=== PATIENT | female | born 1995 ===

== ENCOUNTER 2018-02-21 11:08 | Emergency (ER) | payer SELFPAY ==
--- NOTE | 2018-02-21 12:15 | C.PDOC ---
History Of Present Illness 22 y/o female presents to the ER with boyfriend complaining of feeling nauseous. Patient denies having fever, chills, vomiting, abdominal pain, vaginal bleeding, and vaginal discharge. Time Seen by Provider: 02/21/18 11:29 Chief Complaint (Nursing): Medical Clearance History Per: Patient History/Exam Limitations: no limitations Onset/Duration Of Symptoms: Days Current Symptoms Are (Timing): Still Present Severity: Moderate Past Medical History Reviewed: Historical Data, Nursing Documentation, Vital Signs Vital Signs: Last Vital Signs Temp 98.9 F 02/21/18 11:11 Pulse 79 02/21/18 11:11 Resp 16 02/21/18 11:11 BP 131/90 02/21/18 11:11 Pulse Ox 100 02/21/18 11:11 - Medical History PMH: No Chronic Diseases Surgical History: No Surg Hx Family History: States: No Known Family Hx - Social History Hx Alcohol Use: No Hx Substance Use: No - Immunization History Hx Tetanus Toxoid Vaccination: No Hx Influenza Vaccination: No Hx Pneumococcal Vaccination: No Review Of Systems Except As Marked, All Systems Reviewed And Found Negative. Constitutional: Negative for: Fever, Chills Gastrointestinal: Positive for: Nausea. Negative for: Vomiting, Abdominal Pain Physical Exam - Physical Exam Appears: Non-toxic, No Acute Distress Skin: Normal Color, Warm, Dry Head: Atraumatic, Normacephalic Eye(s): bilateral: Normal Inspection Nose: Normal Oral Mucosa: Moist Neck: Supple Chest: Symmetrical Cardiovascular: Rhythm Regular Respiratory: Normal Breath Sounds, No Rales, No Rhonchi, No Wheezing Gastrointestinal/Abdominal: Normal Exam, Soft, No Tenderness, No Guarding, No Rebound Neurological/Psych: Oriented x3, Normal Speech ED Course And Treatment - Laboratory Results Result Diagrams: 02/21/18 12:57 02/21/18 12:57 O2 Sat by Pulse Oximetry: 100 (RA) Pulse Ox Interpretation: Normal Progress Note: Labs, UA, and HCG-Qual. ordered. Patient treated with IV Fluids and Zofran IV. On re-evaluation patient feels better and is stable to be d/c home with OBGYN f/u on 03/05/2018. Disposition - Disposition Disposition: HOME/ ROUTINE Disposition Time: 13:26 Condition: STABLE Additional Instructions: Follow up with OBGYN within 1-2 days. Return to ED if feel worse. 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 - Scribe Statement The provider has reviewed the documentation as recorded by the Maddie Jade Provider Attestation All medical record entries made by the Maddie were at my direction and personally dictated by me. I have reviewed the chart and agree that the record accurately reflects my personal performance of the history, physical exam, medical decision making, and the department course for this patient. I have also personally directed, reviewed, and agree with the discharge instructions and disposition.
[2018-02-21] MEDS ORDERED: Sodium Chloride 0.9% 1,000 ML IV STA (12:17)
[2018-02-21 13:08] LABS: BASO % 0.4 % (0.0-2.0); EOS % 0.8 % (0.0-4.0); HEMOGLOBIN 12.9 g/dL (11.0-16.0); LYMPH # 1.7 K/uL (1.0-4.3); LYMPH % 26.4 % (20.0-40.0); MEAN CELL VOLUME 90.2 fL (81.0-99.0); MEAN CORPUSCULAR HEMOGLOBIN 31.5 pg (27.0-31.0); MEAN CORPUSCULAR HGB CONC 34.9 g/dL (33.0-37.0); MEAN PLATELET VOLUME 7.7 fL (7.2-11.7); MONO # 0.5 K/uL (0.0-0.8); MONO % 7.9 % (0.0-10.0); NEUT # 4.2 K/uL (1.8-7.0); NEUT % 64.5 % (50.0-75.0); RBC 4.09 Mil/uL (3.80-5.20); RED CELL DISTRIBUTION WIDTH 13.1 % (11.5-14.5); WHITE BLOOD COUNT 6.4 K/uL (4.8-10.8)
[2018-02-21 13:18] LABS: HCG,QUALITATIVE URINE POSITIVE (NEGATIVE)
[2018-02-21 13:20] LABS: SQUAMOUS EPITHIAL 13 /hpf (0-5); URINE BACTERIA RARE (<OCC); URINE BILIRUBIN NEGATIVE (NEGATIVE); URINE BLOOD NEGATIVE (NEGATIVE); URINE CLARITY Hazy (Clear); URINE COLOR Amber (YELLOW); URINE GLUCOSE (UA) NORMAL (Normal); URINE LEUKOCYTE ESTERASE 1+ Leu/uL (Negative); URINE PROTEIN 1+ mg/dL (NEGATIVE); URINE UROBILINOGEN NORMAL mg/dL (0.2-1.0)
[2018-02-21 13:22] LABS: ALB/GLOB RATIO 1.4 (1.0-2.1); ALBUMIN 4.1 g/dL (3.5-5.0); ALT/SGPT 28 U/L (9-52); AST/SGOT 24 U/L (14-36); BLOOD UREA NITROGEN 7 mg/dL (7-17); CALCIUM 9.1 mg/dl (8.6-10.4); GFR NON-AFRICAN AMERICAN > 60; LIPASE 54 U/L (23-300)
[2018-02-21 13:39] VITALS: BP 100/65; PULSE 74; RESP 18; TEMP 97.8
[2018-02-21 15:28] VITALS: O2SAT 100
== END 2018-02-21 14:06 | disposition home or self-care (01) ==
LOC: C.ER 11:08
DX: O21.9 Vomiting of pregnancy, unspecified (principal); Z3A.00 Weeks of gestation of pregnancy not specified
CPT/HCPCS: 80053; 81001; 83690; 84703; 85025; 96361; 96374; 99282; J2405; J7030

== ENCOUNTER 2018-03-28 16:48 | Emergency (ER) | payer SELFPAY ==
[2018-03-28 17:06] VITALS: RESP 18; O2SAT 100
[2018-03-28 17:54] LABS: BASO % 0.3 % (0.0-2.0); EOS # 0.2 K/uL (0.0-0.7); EOS % 1.9 % (0.0-4.0); HEMOGLOBIN 12.4 g/dL (11.0-16.0); LYMPH # 2.1 K/uL (1.0-4.3); LYMPH % 26.1 % (20.0-40.0); MEAN CELL VOLUME 89.1 fL (81.0-99.0); MEAN CORPUSCULAR HEMOGLOBIN 30.4 pg (27.0-31.0); MEAN CORPUSCULAR HGB CONC 34.1 g/dL (33.0-37.0); MEAN PLATELET VOLUME 7.4 fL (7.2-11.7); MONO # 0.5 K/uL (0.0-0.8); MONO % 6.2 % (0.0-10.0); NEUT # 5.3 K/uL (1.8-7.0); NEUT % 65.5 % (50.0-75.0); RBC 4.1 Mil/uL (3.80-5.20); WHITE BLOOD COUNT 8.1 K/uL (4.8-10.8)
[2018-03-28 18:01] LABS: HCG,QUALITATIVE URINE POSITIVE (NEGATIVE)
[2018-03-28 18:18] LABS: ALT/SGPT 24 U/L (9-52); AST/SGOT 30 U/L (14-36); BLOOD UREA NITROGEN 4 mg/dL (7-17); CALCIUM 9.6 mg/dl (8.6-10.4); GFR NON-AFRICAN AMERICAN > 60; LIPASE 69 U/L (23-300)
[2018-03-28 18:26] LABS: ALB/GLOB RATIO 1.4 (1.0-2.1)
[2018-03-28 18:36] LABS: SQUAMOUS EPITHIAL 8 /hpf (0-5); URINE BACTERIA OCC (<OCC); URINE BILIRUBIN NEGATIVE (NEGATIVE); URINE BLOOD NEGATIVE (NEGATIVE); URINE CLARITY Hazy (Clear); URINE COLOR Yellow (YELLOW); URINE GLUCOSE (UA) NORMAL (Normal); URINE PROTEIN NEGATIVE (NEGATIVE); URINE UROBILINOGEN NORMAL mg/dL (0.2-1.0)
[2018-03-28 18:38] LABS: URINE LEUKOCYTE ESTERASE 1+ Leu/uL (Negative)
--- NOTE | 2018-03-28 18:50 | US ---
Date of service: 03/28/2018 PROCEDURE: First trimester ultrasound HISTORY: lower abdominal pain COMPARISON: None TECHNIQUE: Standard protocol for this study/examination. FINDINGS: LMP: 12/28/2017. Prior examinations from the current : None TECHNIQUE: Real-time 2D imaging, duplex and color Doppler. FINDINGS: Cardiac activity: Present Rate: 137 BPM Measurements: [place] rump length: 5.28 cm Gestational age based on CRL 12 weeks Gestational age 11 weeks 4 days based on gestational sac measurement 5.53 cm Gestational age derived from LMP: 12 weeks 6 days DES based on LMP: 10/04/2018 DES based on biometry: 10/11/2016 Gestational concordance documented Yolk sac identified Cervix: No Cervical abnormalities: Negative examination for cervical dilatation or effacement. Closed cervix measuring 3.03 cm Subchorionic hemorrhage: None UTERUS: 6.3 x 68.8 x 12 cm. ADNEXA: Right: 3.1 x 2.5 x 2.6 cm. Normal Doppler arterial waveform documented. Left: 1.4 x 2.7 x 2.2 cm. Normal Doppler arterial waveform documented Fluid in the cul-de-sac: None IMPRESSION: 11 weeks 6 days live intrauterine gestation. Gestational concordance documented.
--- NOTE | 2018-03-28 18:52 | C.PDOC ---
History Of Present Illness 22 y/o female presents to the ED with complaints of lower abdominal pain for the past couple of days. Associated with mild nausea but no vomiting. Otherwise patient denies any dysuria, hematuria, vaginal bleeding, or discharge. Of note patient is currently . LMP was 12/28/17. Time Seen by Provider: 03/28/18 17:34 Chief Complaint (Nursing): Abdominal Pain History Per: Patient History/Exam Limitations: no limitations Onset/Duration Of Symptoms: Days Current Symptoms Are (Timing): Still Present Location Of Pain/Discomfort: Suprapubic Quality Of Discomfort: "Pain" Associated Symptoms: Nausea Past Medical History Reviewed: Historical Data, Nursing Documentation, Vital Signs Vital Signs: Last Vital Signs Temp 98.0 F 03/28/18 17:02 Pulse 91 H 03/28/18 17:02 Resp 18 03/28/18 17:02 BP 128/85 03/28/18 17:02 Pulse Ox 100 03/28/18 17:02 - Medical History PMH: No Chronic Diseases Surgical History: No Surg Hx Family History: States: No Known Family Hx - Social History Hx Tobacco Use: No Hx Alcohol Use: No Hx Substance Use: No - Immunization History Hx Tetanus Toxoid Vaccination: No Hx Influenza Vaccination: No Hx Pneumococcal Vaccination: No Review Of Systems Except As Marked, All Systems Reviewed And Found Negative. Constitutional: Negative for: Fever, Chills Gastrointestinal: Positive for: Nausea, Abdominal Pain. Negative for: Vomiting, Diarrhea Genitourinary: Negative for: Dysuria, Frequency, Hematuria, Vaginal Discharge, Vaginal Bleeding Physical Exam - Physical Exam Appears: Non-toxic, No Acute Distress Skin: Normal Color, Warm, Dry Head: Atraumatic, Normacephalic Eye(s): bilateral: Normal Inspection, PERRL, EOMI Oral Mucosa: Moist Neck: Normal ROM Chest: Symmetrical Cardiovascular: Rhythm Regular, No Murmur Respiratory: Normal Breath Sounds, No Accessory Muscle Use, No Wheezing Gastrointestinal/Abdominal: Soft, Tenderness (Minimal suprapubic tenderness), No Distention, No Guarding, No Rebound Back: No CVA Tenderness, No Vertebral Tenderness Extremity: Bilateral: Atraumatic, Normal Color And Temperature, Normal ROM Neurological/Psych: Oriented x3, Normal Speech ED Course And Treatment - Laboratory Results Result Diagrams: 03/28/18 17:48 03/28/18 17:48 O2 Sat by Pulse Oximetry: 100 (RA) Pulse Ox Interpretation: Normal - CT Scan/US OB Ultrasound Other Rad Studies (CT/US): Read By Radiologist, Radiology Report Reviewed CT/US Interpretation: Accession No. : [id number]. Patient Name / ID : EDITH PIPER / [id number]. Exam Date : 03/28/2018 18:15:00 ( Approved ). Study Comment : Sex / Age : F / 22Y. Creator : Jose Martin Allison MD. Dictator : Jose Martin Allison MD. Nursing Faculty : Spool Tender : Jose Martin Allison MD. Approver2 : Report Date : 03/28/2018 18:47:30. My Comment : . Date of service: 03/28/2018. PROCEDURE: First trimester ultrasound. HISTORY: lower abdominal pain. COMPARISON: None. TECHNIQUE: Standard protocol for this study/examination. FINDINGS: LMP: 12/28/2017. Prior examinations from the current : None. TECHNIQUE: Real-time 2D imaging, duplex and color Doppler. FINDINGS: Cardiac activity: Present. Rate: 137 BPM. Measurements: Onset rump length: 5.28 cm. Gestational age based on CRL 12 weeks. Gestational age 11 weeks 4 days based on gestational sac measurement 5.53 cm. Gestational age derived from LMP: 12 weeks 6 days. DES based on L MP: 10/04/2018. DES based on biometry: 10/11/2016. Gestational concordance documented. Yolk sac identified. Cervix: No Cervical abnormalities: Negative examination for cervical dilatation or effacement. Closed cervix measuring 3.03 cm. Subchorionic hemorrhage: None. UTERUS: 6.3 x 68.8 x 12 cm. ADNEXA: Right: 3.1 x 2.5 x 2.6 cm. Normal Doppler arterial waveform documented. Left: 1.4 x 2.7 x 2.2 cm. Normal Doppler arterial waveform documented. Fluid in the cul-de-sac: None. IMPRESSION: 11 weeks 6 days live intrauterine gestation. Gestational concordance documented. Medical Decision Making Medical Decision Making: Impression: Abdominal pain during Initial Plan: --CMP --Lipase --Beta-HCG --CBC --UA --Urine HCG --Urine culture -- OB US Labs reviewed: Urine HCG is positive. UA (+) for bacteria and leuks. Ultrasound shows live IUP, copy of report provided to patient. Patient advised to follow up in the women's clinic or with any OB. Disposition Counseled Patient/Family Regarding: Studies Performed, Diagnosis, Need For Followup - Disposition Referrals: [facility] Alex Mcnamara, [Non-Staff] - Disposition: HOME/ ROUTINE Disposition Time: 18:55 Condition: GOOD Additional Instructions: VERONIQUE LAWSON, thank you for letting us take care of you today. The emergency medical care you received today was directed at your acute symptoms. If you were prescribed any medication, please fill it and take as directed. It may take several days for your symptoms to resolve. Return to the Emergency Department if your symptoms worsen, do not improve, or if you have any other problems. Please contact your doctor or call one of the physicians/clinics you have been referred to that are listed on the Patient Visit Information form that is included in your discharge packet. Bring any paperwork you were given at discharge with you along with any medications you are taking to your follow up visit. Our treatment cannot replace ongoing medical care by a primary care provider outside of the emergency department. Thank you for allowing the [facility] team to be part of your care today. Follow up with your OB doctor this week for re-evaluation and further management. VERONIQUE LAWSON, paulo por dejarnos cuidar de ti hoy. La atencin mdica de emergencia que recibi hoy se dirigi a tyson sntomas agudos. Si le recetaron algn medicamento, llnelo y tmelo segn las indicaciones. Los sntomas pueden tardar varios johnston en resolverse. Regrese al Departamento de Emergencias si tyson sntomas empeoran, no mejoran o si tiene otros problemas. Comunquese con sharif mdico o llame a ana de los mdicos / clnicas a los que steen sido referido que figuran en el formulario de Informacin de visita al paciente que se incluye en sharif paquete de aury. Traiga cualquier documento que se les mani al aury con usted junto con cualquier medicamento que est tomando a sharif visita de seguimiento. Nuestro tratamiento no puede reemplazar la atencin mdica continua por parte de un proveedor de atencin primaria fuera del departamento de emergencias. Paulo por permitir que el equipo de [facility] [employer] sea parte de sharif atencin hoy. Sesar un seguimiento con sharif mdico OB esta semana para reevaluar y administrar ms. Instructions: - The Fourth Month Forms: Gen Discharge Inst [place], [employer] ([place]) Print Language: HUNGARIAN - POA Present On Arrival: None - Clinical Impression Clinical Impression: Abdominal pain during - Scribe Statement The provider has reviewed the documentation as recorded by the Hallieibrhonda Bliss Provider Attestation: All medical record entries made by the Scribe were at my direction and personally dictated by me. I have reviewed the chart and agree that the record accurately reflects my personal performance of the history, physical exam, medical decision making, and the department course for this patient. I have also personally directed, reviewed, and agree with the discharge instructions and disposition.
[2018-03-28 19:06] VITALS: BP 114/77; PULSE 85; TEMP 98.1
== END 2018-03-28 19:05 | disposition home or self-care (01) ==
LOC: C.ER 16:48
DX: O26.891 Other specified pregnancy related conditions, first trimester (principal); R10.30 Lower abdominal pain, unspecified; Z3A.11 11 weeks gestation of pregnancy

== ENCOUNTER 2018-05-09 10:26 | Outpatient (CLI) | payer SELFPAY | END 2018-05-09 10:27 | disposition home or self-care (01) | LOC: C.LAB 10:26 | DX: Z34.92 Encounter for supervision of normal pregnancy, unspecified, second trimester (principal) ==

== ENCOUNTER 2018-06-28 19:15 | Emergency (ER) | payer SELFPAY | END 2018-06-28 21:30 | disposition home or self-care (01) | LOC: C.EROB 19:15 ==

== ENCOUNTER 2018-06-30 09:01 | Outpatient (CLI) | payer SELFPAY | END 2018-06-30 09:02 | disposition home or self-care (01) | LOC: C.LAB 09:01 | DX: Z34.92 Encounter for supervision of normal pregnancy, unspecified, second trimester (principal) ==

== ENCOUNTER 2018-07-22 15:24 | Emergency (ER) | payer SELFPAY ==
[2018-07-22 16:00] VITALS: BMI 33.5
[2018-07-22] MEDS ORDERED: Lactated Ringer's 1,000 ML IV ONE (16:12)
[2018-07-22 16:46] LABS: BASO % 0.1 % (0.0-2.0); EOS # 0.1 K/uL (0.0-0.7); EOS % 1.5 % (0.0-4.0); LYMPH # 1.5 K/uL (1.0-4.3); LYMPH % 16.7 % (20.0-40.0); MEAN CORPUSCULAR HEMOGLOBIN 30.2 pg (27.0-31.0); MEAN CORPUSCULAR HGB CONC 32.9 g/dL (33.0-37.0); MEAN PLATELET VOLUME 7.8 fL (7.2-11.7); MONO # 0.7 K/uL (0.0-0.8); MONO % 7.6 % (0.0-10.0); NEUT # 6.5 K/uL (1.8-7.0); NEUT % 74.1 % (50.0-75.0); RBC 3.96 Mil/uL (3.80-5.20); RED CELL DISTRIBUTION WIDTH 13.3 % (11.5-14.5); WHITE BLOOD COUNT 8.8 K/uL (4.8-10.8)
[2018-07-22 16:58] LABS: SQUAMOUS EPITHIAL 25 /hpf (0-5); URINE BACTERIA MANY (<OCC); URINE BILIRUBIN NEGATIVE (NEGATIVE); URINE BLOOD NEGATIVE (NEGATIVE); URINE CALCIUM OXALATE CRYSTALS MOD /hpf (<OCC); URINE CLARITY Hazy (Clear); URINE COLOR Amber (YELLOW); URINE GLUCOSE (UA) NORMAL (Normal); URINE LEUKOCYTE ESTERASE 3+ Leu/uL (Negative); URINE PROTEIN 2+ mg/dL (NEGATIVE); URINE UROBILINOGEN NORMAL mg/dL (0.2-1.0); WBC CLUMPS FEW /hpf
[2018-07-22 17:15] LABS: ALB/GLOB RATIO 1.3 (1.0-2.1); ALBUMIN 3.6 g/dL (3.5-5.0); ALT/SGPT 18 U/L (9-52); AST/SGOT 21 U/L (14-36); BILIRUBIN,DIRECT 0.2 mg/dL (0.0-0.4); BLOOD UREA NITROGEN 6 mg/dL (7-17); CALCIUM 9.2 mg/dl (8.6-10.4); CREATININE, RANDOM URINE 164.8 mg/dL; GFR NON-AFRICAN AMERICAN > 60; PROTHROMBIN TIME 10.7 SECONDS (9.7-12.2); URIC ACID 4.3 mg/dL (2.2-7.5)
--- NOTE | 2018-07-22 18:09 | OBHP ---
Datetime: 07/22/2018 16:15 IP Adm Impression: , intrauterine IP Admit Plan: Discharge home Admit Comment, IP Provider: 22 year old at 28.4 weeks with DES 10/10/18 and LMP unknown presents to OB ED with dysuria, increased urinary frequency, and suprapubic pain. Patient was here in triage last month and was treated with a whole 7 days course of macrobid as instructed. Patient states today she felt worse than when she first came. This is her second possible UTI during this . Orquidea ent denies abnormal vaginal discharge and vaginal bleeding. There is some abdominal pain at rest but when she urinates it worsens and it is sharp. Last intercourse was 4 days ago. The urinary symptoms b claudia yesterday. Patient also complaining of a 7/10 constant headache today. She only drank one bottle of water tod ay and normally has 8 standard size plastic bottles. She feels feverish, but denies chills, sweats, n ausea, vomiting, diarrhea, back pain, chest pain, and shortness of breath. Also denies visual changes , RUQ pain, edema. OB outpatient: [facility] - Dr. 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 Monthly cycles for 5 days. No history of pap smear due to < 21 y o. PMHx: pulmonary edema when she was a child, last time she took meds for it was when she was about 9 years old. She denies taking any medications or having issues with this condition now. FHx: mother has HTN, father unk. SocHx: Denies tobacco, EtOH and illicit drugs. Currently unemployed. . Meds: PNV, folate Allergies: NKDA physical exam and vitals - see above A/P: 22 yo at 28.4 weeks with DES 10/10/18 presents with urinary symptoms and headache. -UA, UCx -PIH labs due to borderline BP and headache -CBC ordered due to low grade fever and tachycardia -IVF -NST -follow up labs above for possible UTI and PIH, will treat as indicated case d/w Dr. Beatrice Hart PGY1 Pt seen at bedside. Agree with above. Rx for Keflex 500mg PO BID x 7 days followed by suppresion given no s/s PEC PIH labs WNL - precautions given DC home, f/u in clinic in 1 week Extremities - PN: Normal Abdomen - PN: Abnormal Back - PN: Normal Lungs - PN: Normal Heart - PN: Normal HEENT - PN: Not Done General - PN: Normal Comments, ACOG Physical Exam: No CVA tenderness bilaterally Suprapubic tenderness R > L IP Hx Assessment: The History has been Updated EGA AdmitDate IP: 28.4 Vital Signs Provider: Reviewed Vital Signs Provider Details: tachycardia IP Chief Complaint: Signs/Symptoms Gestational HTN; Signs/symptoms UTI
[2018-07-22 22:54] VITALS: BP 111/60; PULSE 92; RESP 18; TEMP 99.4
== END 2018-07-22 18:41 | disposition home or self-care (01) ==
LOC: C.EROB 15:24
DX: O26.893 Other specified pregnancy related conditions, third trimester (principal); Z3A.28 28 weeks gestation of pregnancy; R35.0 Frequency of micturition; R51 Headache
CPT/HCPCS: 80053; 81001; 82570; 83615; 84156; 84550; 85025; 85384; 85610; 85730; 87086; 99283; J7120

== ENCOUNTER 2018-08-05 15:44 | Emergency (ER) | payer SELFPAY ==
[2018-08-05 15:45] VITALS: BMI 33.5
--- NOTE | 2018-08-05 16:43 | C.PDOC ---
History Of Present Illness 22 year old female presents to ED with complaint of sore throat for the past 2 days. Patient states that it feels like her glands are swollen. Patient is 30 weeks . Patient denies fever, difficulty swallowing, shortness of breath, and abdominal pain. Time Seen by Provider: 08/05/18 15:53 Chief Complaint (Nursing): ENT Problem History Per: Patient History/Exam Limitations: no limitations Onset/Duration Of Symptoms: Days (2) Current Symptoms Are (Timing): Still Present Location Of Pain: Throat Associated Symptoms: Sore Throat. denies: Fever, Other (difficulty swallowing, shortness of breath, and abdominal pain ) Past Medical History Reviewed: Historical Data, Nursing Documentation, Vital Signs Vital Signs: Last Vital Signs Temp 98 F 08/05/18 15:48 Pulse 117 H 08/05/18 15:48 Resp 18 08/05/18 15:48 BP 130/88 08/05/18 15:48 Pulse Ox 99 08/05/18 15:48 - Medical History PMH: No Chronic Diseases Surgical History: No Surg Hx Family History: States: Unknown Family Hx - Social History Hx Tobacco Use: No Hx Alcohol Use: No Hx Substance Use: No - Immunization History Hx Tetanus Toxoid Vaccination: No Hx Influenza Vaccination: No Hx Pneumococcal Vaccination: No Review Of Systems Constitutional: Negative for: Fever, Chills ENT: Positive for: Throat Pain. Negative for: Other (difficulty swallowing) Respiratory: Negative for: Shortness of Breath Gastrointestinal: Negative for: Abdominal Pain Physical Exam - Physical Exam Appears: Well, Non-toxic, No Acute Distress Skin: Normal Color, Warm, Dry Head: Atraumatic, Normacephalic Eye(s): left: Normal Inspection Ear(s): Bilateral: Normal Nose: Normal Oral Mucosa: Moist Throat: Erythema (minimal ) Neck: Normal ROM, Supple Chest: Symmetrical, No Deformity Cardiovascular: Rhythm Regular, No Murmur Respiratory: No Accessory Muscle Use, No Rales, No Rhonchi, No Wheezing Gastrointestinal/Abdominal: Soft, Other (gravid) Extremity: Capillary Refill (<2 seconds) Neurological/Psych: Oriented x3, Normal Speech, Normal Cognition ED Course And Treatment O2 Sat by Pulse Oximetry: 99 (in RA) Pulse Ox Interpretation: Normal Medical Decision Making Medical Decision Making: Impression: 22 year old female with sore throat. Plan: Throat culture Rapid strep Rapid strep negative. Patient remained afebrile and able to speak clear sentences and no intraoral swelling or drooling Disposition Counseled Patient/Family Regarding: Diagnosis, Need For Followup, Rx Given - Disposition Disposition: HOME/ ROUTINE Disposition Time: 17:04 Condition: GOOD Additional Instructions: Melanie Tylenol para cualquier dolor. 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 (Mariel Alves) - Scribe Statement The provider has reviewed the documentation as recorded by the Scribe (Mariel Alves) All medical record entries made by the Scribe were at my direction and personally dictated by me. I have reviewed the chart and agree that the record accurately reflects my personal performance of the history, physical exam, medical decision making, and the department course for this patient. I have also personally directed, reviewed, and agree with the discharge instructions and disposition.
[2018-08-05 17:16] VITALS: BP 122/78; PULSE 93; RESP 17; TEMP 98.5
[2018-08-05 17:27] VITALS: O2SAT 99
== END 2018-08-05 17:16 | disposition home or self-care (01) ==
LOC: C.ER 15:44
DX: O99.513 Diseases of the respiratory system complicating pregnancy, third trimester (principal); J02.9 Acute pharyngitis, unspecified; Z3A.30 30 weeks gestation of pregnancy

== ENCOUNTER 2018-08-28 11:39 | Outpatient (CLI) | payer SELFPAY | END 2018-08-28 11:40 | disposition home or self-care (01) | LOC: C.LAB 11:39 | DX: Z34.93 Encounter for supervision of normal pregnancy, unspecified, third trimester (principal) ==

== ENCOUNTER 2018-08-30 15:48 | Inpatient (IN) | payer SELFPAY ==
[2018-08-30 16:27] VITALS: BMI 33.8
[2018-08-30 16:49] LABS: SQUAMOUS EPITHIAL 15 /hpf (0-5); URINE BACTERIA FEW (<OCC); URINE BILIRUBIN NEGATIVE (NEGATIVE); URINE BLOOD NEGATIVE (NEGATIVE); URINE CLARITY Hazy (Clear); URINE COLOR Yellow (YELLOW); URINE GLUCOSE (UA) NORMAL (Normal); URINE LEUKOCYTE ESTERASE 3+ Leu/uL (Negative); URINE PROTEIN NEGATIVE (NEGATIVE); URINE UROBILINOGEN NORMAL mg/dL (0.2-1.0)
[2018-08-30] MEDS ORDERED: Lactated Ringer's 1,000 ML IV ONE (19:55)
[2018-08-30] MEDS ORDERED: Betamethasone Soluspan 30 mg/5mL Inj Susp IM ONE (19:59)
[2018-08-30] MEDS ORDERED: Lactated Ringer's 1,000 ML IV SCH (20:15)
[2018-08-30 20:48] LABS: BASO % 0.3 % (0.0-2.0); EOS # 0.2 K/uL (0.0-0.7); EOS % 2.2 % (0.0-4.0); HEMOGLOBIN 12.5 g/dL (11.0-16.0); LYMPH # 1.6 K/uL (1.0-4.3); LYMPH % 16.4 % (20.0-40.0); MEAN CELL VOLUME 89.3 fL (81.0-99.0); MEAN CORPUSCULAR HEMOGLOBIN 30.1 pg (27.0-31.0); MEAN CORPUSCULAR HGB CONC 33.7 g/dL (33.0-37.0); MEAN PLATELET VOLUME 8.2 fL (7.2-11.7); MONO # 0.6 K/uL (0.0-0.8); MONO % 6.4 % (0.0-10.0); NEUT # 7.1 K/uL (1.8-7.0); NEUT % 74.7 % (50.0-75.0); NRBC % 0.1 % (0.0-2.0); RBC 4.16 Mil/uL (3.80-5.20); RED CELL DISTRIBUTION WIDTH 13.6 % (11.5-14.5); WHITE BLOOD COUNT 9.5 K/uL (4.8-10.8)
[2018-08-30 21:05] LABS: ALB/GLOB RATIO 1.2 (1.0-2.1); ALBUMIN 3.6 g/dL (3.5-5.0); ALT/SGPT 20 U/L (9-52); AST/SGOT 20 U/L (14-36); BLOOD UREA NITROGEN 7 mg/dL (7-17); CALCIUM 9.4 mg/dl (8.6-10.4); GFR NON-AFRICAN AMERICAN > 60; URIC ACID 4.5 mg/dL (2.2-7.5)
--- NOTE | 2018-08-30 21:38 | OBADHP ---
Datetime: 08/30/2018 16:28 IP Chief Complaint Other: Swollen hands and feet Admit Comment, IP Provider: Patient is a 22 YO F , with IUP at 34.1 weeks and DES 10/10 based on LMP of 01/03/18 and late US. Patient is coming in today with complain of hand and feel swelling, an d pressure on lower abdomen. Patient currently denies vaginal bleeding and loss of fluid. She reports good movement and cramping starting early in the morning, which has since resolved. Patient re ports urination 6-7x/day and drinks 5-6 8oz bottles of water. Her outpatient OBGyn is Dr. Joya at [facility]. Apparently patient was seen at Clinic on 08/22 and was given Rx for 24 hour Urine f or TProt. Cr Cl and PIH labs and she had those done on 08/28 at [facility]. 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 Denies history of STD, f ibroids and cysts. PMH: Denies PSH: Denies Allergies: NKDA Meds: Prenatals Social Hx: Denies tobacco, alcohol and recreational drugs. Patient is currently and unecmp loyed. Fam Hx: Mother 40 YO HTN. Father not in contact A/P IUP at 34.1 weeks Worsening of hands and feet swelling over the past week Midly elevated BP's without MADRID, Bv or EP NST Reactive and no signs of labor Had work-up for PIH on 08/28 and results reviewed and WNL for the most part except for 24 hours TP of 315 mgs. UA today revealed Dehydration, 25 WBC's in urine, c/w UTI and P/Cr ratio of 0.07 Hx of + E.Coli urine infection about 6 weeks ago and treated with Macrobid and on daily dose Case discussed with NATIVIDAD Barton and recommended to admit patient, repeat 24 hour urine collect ion and PIH labs, BPP, and Celestone POC discussed with patient and verbalized understanding and orderes written IV LR ordered as well as Ancef and all other recommended orders. Indy Duenas OMS III Pt seen and examined with MD student HIRAM Duenas and agree with all her findings and POC Extremities - PN: Normal Abdomen - PN: Normal Back - PN: Normal Breast - PN: Not Done Lungs - PN: Normal Heart - PN: Normal Thyroid - PN: Not Done Neurologic - PN: Not Done HEENT - PN: Not Done General - PN: Normal FHR - Baseline A Provider: 150 Membranes, Provider: Intact Comments, ACOG Physical Exam: Heart - S1,S2 no S3/S4 no rubs and gallops Lungs - Normal sounds to auscultation to all zapata, no RRW Abdomen - Fundal height 29.5 cm Extremties - 1+ edema, 2+ pulses on all extremities, no calf tenderness Gestation - Est Wks by US: 34.1 Vital Signs Provider: Reviewed Vital Signs Provider Details: Tachycardia IP Chief Complaint: Other NICHD Variability Prov Fetus A: Moderate 6-25bpm NICHD Accel Fetus A IP Provider: [id number] FHR Category Provider Fetus A: Category I Genitourinary Exam: Not Done DTRs - PN: Not Done EGA AdmitDate IP: 34.1 IP Adm Impression: Term, intrauterine ; No Active Labor; Intact Membranes IP Admit Plan: Admit to unit; Observation/Evaluation Datetime: 07/22/2018 16:15 IP Hx Assessment: The History has been Updated Datetime: 06/28/2018 20:15 Pelvic Type - PN: Adequate Contraction Comments Provider: none NICHD Decel Fetus A IP Provider: None Dilatation, Provider: 0 Effacement, Provider: 0 Station, Provider: n/a
[2018-08-30] MEDS: ceFAZolin 1 gm FROZEN Premix 1 GM/50 ML ML IVPB SCH (22:15)
[2018-08-31] MEDS: ceFAZolin 1 gm FROZEN Premix 1 GM/50 ML ML IVPB SCH ×3 (06:15→20:13)
--- NOTE | 2018-08-31 12:31 | US ---
Date of service: 08/30/2018 PROCEDURE: Limited obstetrical ultrasound and biophysical profile HISTORY: Probable Preeclampsia. Dehydration, UTI COMPARISON: 03/28/2018. ultrasound. TECHNIQUE: Standard protocol for this study/examination. FINDINGS: FINDINGS: Biophysical profile score 8/8 Based on the followin. breathing movements: 2/2 2. Gross body movement: 2/2 3. tone: 2/2 4. Qualitative amniotic fluid index: 2/2 Cephalic presentation. Anterior placenta. No evidence of abruption or previa Gestational age derived from LMP 34 weeks 1 day. DES 10/10/2018. Gestational age derived from the following biometric parameters 35 weeks 2 days. DES 10/02/2018. Biparietal diameter 8.74 cm Head circumference 31.26 cm Abdominal circumference 31.63 cm Femur length 6.87 cm Estimated weight 2669 g Calculated cardiac rate 124 beats per min. Closed cervix measuring 3.06 cm Amniotic fluid index 18.0 cm. IMPRESSION: Biophysical profile score 8/8. Single live intrauterine gestation in cephalic presentation. Gestational age based on biometry 35 weeks 2 days. Gestational concordance documented. Adequate interval progression compared to the prior study. Concordant findings (preliminary report) provided by PALOMO ALMEIDA.
[2018-08-31] MEDS ORDERED: Betamethasone Soluspan 30 mg/5mL Inj Susp IM ONE (19:46)
[2018-08-31 22:54] LABS: URINE 24 HOUR POTASSIUM 93.2 mmol/L (25-125); URINE POTASSIUM 25.2 mmol/L
[2018-08-31 22:57] LABS: URINE CREATININE 38.4 mg/dL
[2018-09-01] MEDS: ceFAZolin 1 gm FROZEN Premix 1 GM/50 ML ML IVPB SCH (04:40)
[2018-09-01 08:06] VITALS: BP 106/61; PULSE 93; RESP 18; TEMP 97.3; O2SAT 98
--- NOTE | 2018-09-02 06:25 | OBDCSUM ---
Datetime: 09/01/2018 14:47 Discharge Time: 09/01/2018 11:30 Discharge Comment, Provider: HD # 2 IUP at 34.2 weeks Gestational Hypertension/Asymptomatic Midly elevated BP's but 315 mg or protein on 24 hr urine collection done on 08/28, per clinic order Presented with increased swelling of hand and feet Had a Protein.Cr ratio of 0.07 on 08/30 Admitted per 's recommendation for: BPP which was 11/24 /NST's Q 12 hrs Reactive Not in labor. Adequate FM Celestone which she received x 2 doses Repeat 24 hr urine collection for TP and Cr Cl and done and resulted with TP of 333 and Cr Cl [address] Abel contacted again today with above findings and recommended to discharge patient home wi th Preeclampsis precautions and to f/up in Clinic [facility] to be schedule for 2xw BPP and MFM follow up Pt in S_S condition and Discharged home with instructions to bed rest and preE precautions reviewe d with her. Pt was given a copy of her lab results to bring to Dr. Miller at [facility] today and I personnally discus sed this case with Dr. Miller. Advised to continue PNV daily and to increase po water intake.
== END 2018-09-01 11:30 | disposition home or self-care (01) | DRG 566 ==
LOC: C.EROB 15:48 → C.4D 19:50 → C.4M 08-31 08:11
PROVIDERS: ADMIT Obstetrics & Gynecology; ATTEND Obstetrics & Gynecology
DX: O13.3 Gestational [pregnancy-induced] hypertension without significant proteinuria, third trimester (principal); O23.43 Unspecified infection of urinary tract in pregnancy, third trimester; O26.893 Other specified pregnancy related conditions, third trimester; E86.0 Dehydration; R00.0 Tachycardia, unspecified; Z3A.34 34 weeks gestation of pregnancy

== ENCOUNTER 2018-09-14 10:44 | Outpatient (CLI) | payer SELFPAY | END 2018-09-14 10:45 | disposition home or self-care (01) | LOC: C.LAB 10:44 | DX: Z34.83 Encounter for supervision of other normal pregnancy, third trimester (principal) ==